=== PATIENT | male | born 1930 | race Caucasian/White ===

== ENCOUNTER 2017-05-14 12:51 | Emergency (ER) | payer OTHER ==
[~2017-05-14] VITALS: Ht 180.3 cm; Wt 87.4 kg
[~2017-05-14 12:51] MED LIST: ALLOPURINOL300 MG PO; ANTIBIOTIC PO; ARICEPT10 MG PO; AUGMENTIN875 MG PO; Atarax,Vistaril; CEFTIN500 MG PO; COUMADIN,JANTO2.5 MG PO; CRESTOR20 MG PO; CRESTOR40 MG PO; Cozaar PO; DETROL LA4 MG PO; ENDOCET 5-3251 EACH PO; FUROSEMIDE20 MG PO; KLOR-CON M1010 MEQ PO; KLOR-CON M2020 MEQ PO; LOSARTAN POTAS100 MG PO; Lasix PO; Lopid PO; METOPROLOL SUC100 MG PO; NORCO 5/3251 TABLET PO; OMEPRAZOLE20 MG PO; ST. JOSEPH ASPI81 MG PO; TOPROL XL100 MG PO; VITAMIN D31000 UNIT PO; WARFARIN SODIUM2 MG PO; WARFARIN SODIUM3 MG PO; ZANTAC150 MG PO; ZETIA10 MG PO; ZOFRAN ODT4 MG PO; Zyloprim PO
[2017-05-14 14:00] LABS: HEMATOCRIT 40.9 % (38.0-50.0); MCV 90.9 FL (86-99); MEAN PLAT.VOLUME 10.3 uM^3 (9.0-12.4); PLATELET COUNT 209 K/uL (156-360); WHITE BLOOD COUNT 9.8 K/uL (4.1-10.2)
[2017-05-14 14:08] LABS: CHLORIDE 107 mEq/L (99-109); SODIUM 140 mEq/L (136-147)
[2017-05-14 14:10] LABS: GLUCOSE 100 mg/dL (70-99)
[2017-05-14 14:12] LABS: ANION GAP 8 MEQ/L (2-14); INTER. NORMALIZED RATIO 2.2; PROTHROMBIN TIME 23.2 (9.2-11.2); PTT 38.2 (25-32)
[2017-05-14 14:14] LABS: GFR ESTIMATE (CALCULATED) 47 mL/min/
[2017-05-14 14:15] LABS: UREA NITROGEN (BUN) 27 mg/dL (9-23)
[2017-05-14 14:23] LABS: TROP-I INTERPRETATION NEGATIVE; TROPONIN-I 0.01 ng/mL (0.0-0.30)
[2017-05-14 15:30] VITALS: BP 133/75
== END 2017-05-14 15:30 | disposition home or self-care (01) ==
LOC: EME 12:51
PROVIDERS: Emergency Medicine
DX: E86.0 Dehydration (principal); I95.1 Orthostatic hypotension; I48.91 Unspecified atrial fibrillation; Z79.01 Long term (current) use of anticoagulants; F03.90 Unspecified dementia, unspecified severity, without behavioral disturbance, psychotic disturbance, mood disturbance, and anxiety; I11.0 Hypertensive heart disease with heart failure; I50.9 Heart failure, unspecified; K21.9 Gastro-esophageal reflux disease without esophagitis; Z87.891 Personal history of nicotine dependence; Z90.49 Acquired absence of other specified parts of digestive tract
CPT/HCPCS: 71020; 80048; 84484; 85027; 85610; 85730; 93005; J7030